=== PATIENT | female | born 1985 | race Caucasian/White ===

== ENCOUNTER 2021-07-29 17:27 | Emergency (ER) | payer OTHER ==
[2021-07-29] MEDS ORDERED: HYDROmorphone 0.5 MG/0.5 ML Syringe IM ONE (17:58)
== END 2021-07-29 19:15 | disposition home or self-care (01) ==
LOC: JD.ED 17:27
DX: S52.501A Unspecified fracture of the lower end of right radius, initial encounter for closed fracture (principal); S52.601A Unspecified fracture of lower end of right ulna, initial encounter for closed fracture; W00.0XXA Fall on same level due to ice and snow, initial encounter
CPT/HCPCS: 29125; 73110; 96372; 99283; J1170

== ENCOUNTER 2023-04-05 17:05 | Inpatient (IN) | payer OTHER ==
[2023-04-05] MEDS ORDERED: Sodium Chloride 0.9% 10 ML Syringe FLUSH PRN (17:36)
[2023-04-05 17:57] LABS: BASOPHILS PERCENT AUTO 0.3 % (0.0-1.0); EOSINOPHILS ABSOLUTE AUTO 0.3 K/mm3 (0.0-0.4); EOSINOPHILS PERCENT AUTO 2.5 % (0.0-6.0); HEMATOCRIT 33.9 % (37.0-47.0); HEMOGLOBIN 11.5 gm/dl (12.0-16.0); IMMATURE GRAN ABSOLUTE AUTO 0.06 K/mm3 (0.00-0.05); IMMATURE GRAN PERCENT AUTO 0.5 % (0.0-0.4); LYMPHOCYTES ABSOLUTE AUTO 2.9 K/mm3 (1.0-4.8); LYMPHOCYTES PERCENT AUTO 23.1 % (24.0-44.0); MEAN CORPUSCULAR HEMOGLOBIN 30.2 pg (28.0-32.0); MEAN CORPUSCULAR HGB CONC 33.9 g/dl (32.0-36.0); MEAN PLATELET VOLUME 9.4 fl (9.4-12.3); MONOCYTES ABSOLUTE AUTO 0.9 K/mm3 (0.0-0.8); MONOCYTES PERCENT AUTO 7.4 % (0.0-8.0); NEUTROPHILS ABSOLUTE AUTO 8.4 K/mm3 (1.8-7.7); NEUTROPHILS PERCENT AUTO 66.2 % (41.0-71.0); PLATELET COUNT,PLT 252 K/mm3 (150-400); RED BLOOD CELL COUNT 3.81 M/mm3 (4.10-5.30); WHITE BLOOD CELL COUNT,WBC 12.62 K/mm3 (3.9-11.3)
[2023-04-05 17:59] LABS: APPEARANCE,URINE CLEAR (Clear); BILIRUBIN,URINE NEGATIVE (Negative); COLOR,URINE YELLOW (Yellow); GLUCOSE,URINE NEGATIVE (Negative); KETONES,URINE NEGATIVE (Negative); LEUKOCYTE ESTERASE,URINE 2+ (Negative); NITRITE,URINE NEGATIVE (Negative); OCCULT BLOOD,URINE NEGATIVE (Negative); PROTEIN,URINE NEGATIVE (Negative); UROBILINOGEN,URINE 0.2 (0.2-1.0)
[2023-04-05 18:11] LABS: CREATININE,URINE RAND 68.2 mg/dL (30.0-125.0); PROTEIN CREATININE RATIO,URINE 146.6 mg/g (0-149)
[2023-04-05 18:17] LABS: CREATININE 0.8 mg/dL (0.55-1.02); EST CRCL DRUG DOSING (CG) 81.53 mL/min; URIC ACID 5.4 mg/dL (2.6-6.0)
[2023-04-05] MEDS ORDERED: Magnesium Sulfate/Water 2 GM in Premix Bag 1 BAG IV ONE (19:05)
[2023-04-05] MEDS ORDERED: Magnesium Sulfate/Water 4 GM in Premix Bag 1 BAG IV ONE (19:05)
[2023-04-05] MEDS: Lactated Ringers 1,000 ML IV SCH (19:30)
[2023-04-05] MEDS: Magnesium Sulfate/Water 40 GM/1,000 ML BAG IV SCH (19:54)
[2023-04-05] MEDS ORDERED: Betamethasone Acetate/Betamethasone Sod Phosphate 6 MG/1 ML MDV IM ONE (20:48)
[2023-04-05] MEDS ORDERED: Sodium Chloride 0.9% 10 ML Syringe FLUSH SCH (21:00)
[2023-04-06] MEDS ORDERED: Sodium Chloride 0.9% 10 ML Syringe FLUSH PRN (09:27)
[2023-04-06] MEDS ORDERED: Misoprostol 100 MCG Tab PO ONE (09:27)
[2023-04-06] MEDS ORDERED: Lactated Ringers 1,000 ML IV SCH (09:30)
[2023-04-06] MEDS: Lactated Ringers 1,000 ML IV SCH (09:49)
[2023-04-06] MEDS: Oxytocin/Lactated Ringers 10 UNIT/1,000 ML BAG IV SCH ×2 (15:01→23:50)
[2023-04-06] MEDS: Magnesium Sulfate/Water 40 GM/1,000 ML BAG IV SCH (15:01)
[2023-04-06 17:06] LABS: GROUP B STREP BY PCR NEGATIVE (NEGATIVE)
[2023-04-06] MEDS ORDERED: Lidocaine 1% 50 ML MDV ONE (20:08)
[2023-04-06] MEDS ORDERED: fentaNYL 100 MCG/2 ML SDV EPIDUR PRN (20:27)
[2023-04-06] MEDS ORDERED: diphenhydrAMINE 50 MG/ML SDV IVPUSH PRN (20:27)
[2023-04-06] MEDS ORDERED: ePHEDrine 50 MG/ML SDV IVPUSH PRN (20:27)
[2023-04-06] MEDS ORDERED: Bupivacaine/fentaNYL/NS 100 ML Bag EPIDUR PRN (20:27)
[2023-04-06] MEDS ORDERED: Misoprostol 25 MCG (1/4 of 100 MCG) Tab PO SCH (21:00)
[2023-04-06] MEDS ORDERED: Sodium Chloride 0.9% 10 ML Syringe FLUSH SCH (21:00)
[2023-04-06] MEDS ORDERED: Tranexamic Acid 1,000 MG/10 ML Vial ONE (22:55)
[2023-04-06] MEDS ORDERED: Bupivacaine 0.25% 10 ML SDV ONE (23:00)
[2023-04-06] MEDS ORDERED: Lidocaine 1.5% with EPINEPHrine 1:200,000 5 ML Amp ONE (23:00)
[2023-04-06] MEDS ORDERED: Misoprostol 200 MCG Tab RECTAL ONE (23:22)
[2023-04-06] MEDS ORDERED: Magnesium Sulfate/Water 40 GM/1,000 ML BAG IV SCH (23:57)
[2023-04-07] MEDS ORDERED: Misoprostol 200 MCG Tab RECTAL PRN (01:38)
[2023-04-07] MEDS ORDERED: Witch Hazel Medicated Pads 40/Jar TOP PRN (01:38)
[2023-04-07] MEDS ORDERED: Oxytocin/Lactated Ringers 10 UNIT/1,000 ML BAG IV SCH (01:38)
[2023-04-07] MEDS ORDERED: Docusate Sodium 100 MG Cap PO PRN (01:38)
[2023-04-07] MEDS ORDERED: Acetaminophen 325 MG Tab PO PRN (01:38)
[2023-04-07] MEDS ORDERED: Hydrocortisone Acetate 25 MG Supp RECTAL PRN (01:38)
[2023-04-07] MEDS ORDERED: Benzocaine/Menthol 20%-0.5% Spray 78 GM Cannister TOP PRN (01:38)
[2023-04-07] MEDS ORDERED: Magnesium Hydroxide 400 MG/5 ML Susp 30 ML Cup PO PRN (01:38)
[2023-04-07] MEDS ORDERED: Ibuprofen 600 MG Tab PO PRN (01:38)
[2023-04-07] MEDS ORDERED: Prenatal Multivitamin with Calcium/Folic Acid/Iron Tab PO SCH ×2 (09:00→21:00)
[2023-04-07] MEDS ORDERED: Labetalol 100 MG Tab PO SCH (09:00)
[2023-04-07] MEDS ORDERED: Verapamil 80 MG Tab PO SCH (09:00)
== END 2023-04-08 10:55 | disposition home or self-care (01) | DRG 807 ==
LOC: JD.OBCHECK 17:05 → JD.OB 17:09 → JD.OBCHECK 04-06 10:32 → JD.OB 04-06 10:33 → OBSVTOIN 04-06 23:16 → JD.OB 04-06 23:17
PROVIDERS: ADMIT Obstetrics & Gynecology; ATTEND Obstetrics & Gynecology
PROC: 10E0XZZ Delivery of Products of Conception, External Approach (ICD-10-PCS; principal; 2023-04-06)
PROC: 0KQM0ZZ Repair Perineum Muscle, Open Approach (ICD-10-PCS; 2023-04-06)
PROC: 3E0P7VZ Introduction of Hormone into Female Reproductive, Via Natural or Artificial Opening (ICD-10-PCS; 2023-04-06)
PROC: 10907ZC Drainage of Amniotic Fluid, Therapeutic from Products of Conception, Via Natural or Artificial Opening (ICD-10-PCS; 2023-04-06)
PROC: 3E0R3BZ Introduction of Anesthetic Agent into Spinal Canal, Percutaneous Approach (ICD-10-PCS; 2023-04-06)
PROC: 00HU33Z Insertion of Infusion Device into Spinal Canal, Percutaneous Approach (ICD-10-PCS; 2023-04-06)
DX: O11.4 Pre-existing hypertension with pre-eclampsia, complicating childbirth (principal); Z37.0 Single live birth; O60.14X0 Preterm labor third trimester with preterm delivery third trimester, not applicable or unspecified; O70.1 Second degree perineal laceration during delivery; O69.81X0 Labor and delivery complicated by cord around neck, without compression, not applicable or unspecified; O99.52 Diseases of the respiratory system complicating childbirth; O99.214 Obesity complicating childbirth; J45.40 Moderate persistent asthma, uncomplicated; Z3A.36 36 weeks gestation of pregnancy; Z88.8 Allergy status to other drugs, medicaments and biological substances; Z79.899 Other long term (current) drug therapy
CPT/HCPCS: 36415; 51702; 59025; 59409; 81003; 82565; 82570; 83615; 84156; 84450; 84460; 84520; 84550; 85025; 87653; A9270-GY; J0702; J2590; J3010; J3475; J3490; J7120